=== PATIENT | male | born 1955 | race Caucasian/White ===

== ENCOUNTER 2016-05-30 22:26 | Emergency (ER) | payer OTHER ==
[~2016-05-30] VITALS: Ht 182.9 cm; Wt 86.3 kg
[~2016-05-30 22:26] MED LIST: ASPIR-LOW81 MG PO; MOTRIN800 MG PO; SYNTHROID125 MCG PO; ZOCOR40 MG PO
[2016-05-30 23:26] LABS: HEMATOCRIT 38.4 % (38.0-50.0); MCHC 32.3 G/DL (30.0-36.0); MCV 89.9 FL (86-99); PLATELET COUNT 184 K/uL (156-360); RBC DIS.WIDTH-CV 13.7 % (11.8-14.6); RBC DIS.WIDTH-SD 44.9 % (39-53); RED BLOOD COUNT 4.27 M/uL (4.00-5.50); WHITE BLOOD COUNT 9.4 K/uL (4.1-10.2)
[2016-05-30 23:35] LABS: INTER. NORMALIZED RATIO 1.1; PROTHROMBIN TIME 10.7 (9.2-11.2); PTT 27.5 (25-32)
[2016-05-30 23:39] LABS: CHLORIDE 110 mEq/L (99-109); POTASSIUM 4.5 mEq/L (3.7-5.4); SODIUM 142 mEq/L (136-147)
[2016-05-30 23:41] LABS: GLUCOSE 105 mg/dL (70-99)
[2016-05-30 23:42] LABS: ANION GAP 7 MEQ/L (2-14)
[2016-05-30 23:45] LABS: GFR ESTIMATE (CALCULATED) > 59 mL/min/; TROP-I INTERPRETATION NEGATIVE; TROPONIN-I 0.09 ng/mL (0.0-0.30); UREA NITROGEN (BUN) 17 mg/dL (9-23)
[2016-05-31 05:06] VITALS: BP 135/76
== END 2016-05-31 05:18 | disposition short-term general hospital (02) ==
LOC: EME → EDBD 22:26 → EME 22:26
PROVIDERS: Emergency Medicine
DX: R07.9 Chest pain, unspecified (principal); R94.31 Abnormal electrocardiogram [ECG] [EKG]; I25.10 Atherosclerotic heart disease of native coronary artery without angina pectoris; I25.2 Old myocardial infarction; Z95.5 Presence of coronary angioplasty implant and graft; I10 Essential (primary) hypertension; E78.5 Hyperlipidemia, unspecified; E03.9 Hypothyroidism, unspecified; Z79.82 Long term (current) use of aspirin; Z87.891 Personal history of nicotine dependence
CPT/HCPCS: 71010; 80048; 84484; 85027; 85610; 85730; 93005; 99281; 99285